=== PATIENT | male | born 1995 | race Caucasian/White ===

== ENCOUNTER → 2020-10-08 08:18 | Outpatient (BNVA) | payer SELFPAY | PROVIDERS: Referring Provider Nurse Practitioner Family; Visit Provider Orthopaedic Surgery | DX: M51.26 Other intervertebral disc displacement, lumbar region (principal); M48.061 Spinal stenosis, lumbar region without neurogenic claudication | CPT/HCPCS: 72072; 72110 ==

== ENCOUNTER 2020-10-08 10:53 | Outpatient (CLI) | payer SELFPAY ==
--- NOTE | 2020-10-08 11:00 | MR_ITS ---
WS: [id number] MRI LUMBAR SPINE NONCONTRAST HISTORY: M54.5 - Low back pain COMPARISON: None available. TECHNIQUE: Sagittal and axial multisequence imaging is submitted. Normal lumbar alignment with no compression fractures or marrow edema. Mild disc desiccation at L4-5 and L5-S1. No marrow edema or fracture. Conus terminates normally at L1. L1-L2: Normal. L2-L3: Mild annular disc bulging with facet arthritis. No significant stenosis. L3-L4: Mild annular disc bulging with a focal central to RIGHT paracentral disc protrusion contacting and displacing the thecal sac. Disc protrusion abuts the L4 nerve root in the lateral recess. Mild b ilateral facet joint arthritis and mild bilateral foraminal stenosis. RIGHT facet joint cyst measures 5 mm associated with the L3-4 synovium. Smaller cyst on the LEFT. L4-L5: Mild annular disc bulging and osteophytic ridging. Small central disc protrusion contacting th e ventral thecal sac with mild deformity. Mild bilateral foraminal narrowing. Slightly greater forami nal narrowing on the RIGHT. L5-S1: Mild annular disc bulging and osteophytic ridging. Central annular fissure. Mild facet joint a rthritis. Disc and facet arthritis contributing to moderate bilateral foraminal stenosis. Visualized retroperitoneum is negative. MR/MR lumbar spine wo con* [id number] IMPRESSION: 1. Central to RIGHT paracentral disc protrusion at L3-4 displacing the ventral thecal sac and abutting the L4 nerve root. 2. Moderate bilateral foraminal stenosis at L5-S1. 3. Mild bilateral foraminal stenosis at L4-5, greater on the RIGHT. 4. Mild foraminal stenosis and facet arthritis at L3-4.
== END 2020-10-08 10:54 | disposition home or self-care (01) ==
PROVIDERS: Visit Provider Orthopaedic Surgery
DX: M48.061 Spinal stenosis, lumbar region without neurogenic claudication (principal); M48.07 Spinal stenosis, lumbosacral region; M51.26 Other intervertebral disc displacement, lumbar region
CPT/HCPCS: 72148

== ENCOUNTER → 2020-11-18 10:30 | Outpatient (BNVA) | payer SELFPAY | PROVIDERS: Referring Provider Nurse Practitioner Family; Visit Provider Specialist | DX: M79.605 Pain in left leg (principal); Z20.822 Contact with and (suspected) exposure to COVID-19 | CPT/HCPCS: 73590; 73610; 87635 ==

== ENCOUNTER 2020-11-23 06:06 | Day surgery (SDC) | payer SELFPAY ==
[2020-11-23] VITALS (11 sets, daily range): BP systolic 119–169; BP diastolic 85–132; PULSE 85–104; RESP 16–26; TEMP 36.1–36.6; O2SAT 90–96; BMI 30.7
--- NOTE | 2020-11-23 | XR_ITS ---
WS: [id number] C-ARM RADIOGRAPHS LEFT TIBIA FIBULA.; 4 IMAGES HISTORY: Removal of hardware screws and fibular plate COMPARISON: 11/18/2020 Intraoperative imaging during removal of the mid fibular plate and screws. Additional removal of 2 sc rews in the distal tibia. XR/XR tibia fibula LT 2V 18000 IMPRESSION: Intraoperative removal of distal tibial screws and screw-plate fixation mid fib dwaine.
--- NOTE | 2020-11-23 06:36 | ANES.PREANE2 ---
Pre-Anesthetic Assessment Pre-Anesthetic Assessment: Height/Weight: Height 1.8 m Weight 99.79 kg Preop Diagnosis: Painful orthopedic hardware Proposed Procedure: Operation Date: 11/23/20 08:00 Proposed Procedures p hardware removal left leg fibular plate and screws, tibial distal 2 screws and tibial proximal 1 screw () M79.605(Left) - Jennifer Ann MD Familial anesthetic complications: NOne Was Beta Yousif taken within 24 hours: N/A Was Clonidine taken within 24 hours: N/A Last intake: Intake Last Liquid Date 11/22/20 Last Liquid Time 23:30 Last Solid Date 11/22/20 Last Solid Time 20:00 Social: Social History: Tobacco and No alcohol Comment: chews Exam: Pre-Anes Outpt Exam: alert, oriented x 3, clear to auscultation bilaterally and regular rate & rhythm Airway: Cervical ROM: WNL MP: 3 Dentition: Full Anesthetic Plan: ASA status: 1 Anesthesia: General Risk of > 500 ml blood loss (7ml/kg in children): No PFSH Anesthesia PFSH: Medical History S/P ORIF (open reduction internal fixation) fracture Family History Grandfather CAD (coronary artery disease) Social History Smoking and tobacco status: current every day smoker smokeless tobacco Smokeless tobacco details: chews Second hand smoke exposure: No Alcohol intake: current Alcohol intake frequency: few times a month Data Anesthesia Cardiac Studies: No Data to Display
[2020-11-23] MEDS: sodium chloride 0.9% 1,000 ML 30 ML IV (06:50)
[2020-11-23] MEDS: acetaminophen 1,000 MG/100 ML PIGGYBACK 400 MG IV (06:50)
[2020-11-23] MEDS: CELEcoxib 200 mg Capsule 400 MG PO (06:50)
--- NOTE | 2020-11-23 07:40 | W.PM.OPSUD ---
Surgery/Procedure H&P Update DATE OF PROCEDURE: November 23, 2020 DATE H&P PERFORMED: 11/18/20 H&P UPDATE INFORMATION: I have reviewed H&P completed within last 30 days, I have examined patient prior to procedure, No changes to prior documentation and H&P is in [facility] EMR on date indicated PREOP DIAGNOSIS: Painful orthopedic hardware PLANNED PROCEDURE: Operation Date: 11/23/20 08:00 Proposed Procedures p hardware removal left leg fibular plate and screws, tibial distal 2 screws and tibial proximal 1 screw () M79.605(Left) - Jennifer Ann MD Related Problem List Diagnoses (1) Painful orthopaedic hardware: (2) S/P ORIF (open reduction internal fixation) fracture:
--- NOTE | 2020-11-23 08:15 | SCC_ITS ---
Procedure Done: Multiple hardware removal sites left lower extremity single incision at the tibial tubercle for 1 screw, medial distal tibia incision for removal of 2 screws at the distal aspect of the tibia, and scar revision with plate removal midshaft fibula with a third incision. 21.9 seconds of fluoroscopic guidance, for a cumulative dose of 1.01 mGy, was provided to Dr.Jolly Borrero by the radiology department. C-arm images of the left tibia fibula were saved for the patient's permanent record. ABNER
[2020-11-23] MEDS: ceFAZolin 1,000 mg SDV 1000 MG IRRIGATION (10:01)
--- NOTE | 2020-11-23 10:44 | SUR.PHASEI ---
1041 PATIENT TO PACU FROM OR AT THIS TIME. RR EVEN AND UNLABORED. PWD. DRESSING IN PLACE WITH LUCI WRAP TO LEFT ANKLE. CDI.
--- NOTE | 2020-11-23 10:55 | P.PCN_ITS ---
PACU note PACU note: VSS, Good respiratory effort, report to FRONT END SOFTWARE ENGINEER Post-Anesthesia Exam: awake
--- NOTE | 2020-11-23 10:55 | PM.PACU ---
PACU note PACU note: VSS, Good respiratory effort, report to INSTALLATION AND REPAIR TECHNICIAN Post-Anesthesia Exam: awake
--- NOTE | 2020-11-23 10:57 | PM.OP ---
Operative Report Date of procedure: November 23, 2020 Pre-op Diagnosis: Painful orthopedic hardware left tibia Post-op diagnosis: same Post-op Findings: Very difficult screw removal of the distal 2 tibial screws Procedure Done: Multiple hardware removal sites left lower extremity single incision at the tibial tubercle for 1 screw, medial distal tibia incision for removal of 2 screws at the distal aspect of the tibia, and scar revision with plate removal midshaft fibula with a third incision. Specimens removed/disposition: Hardware removed, patient desires to have hardware Pathology: none sent Surgeon: Jennifer Ann Yard Rigger: [facility] operating room technicians Anesthesia: MAC (ASA 1) Estimated blood loss (mL): 10 Tourniquet time (min): 117 Tourniquet time: At 250 mmHg IV fluids (mL): 700 Urine output (mL): 0 Urine output: No Skelton Complications: None Findings: Retained hardware including a broken fibular plate with 7 screws are removed uneventfully. Proximal screw removal from intramedullary tibial nail. Distal screw removal x2 from intramedullary tibial nail with significant difficulty. Condition: stable Disposition: PACU (Then to same-day surgery and home) Brief History: This 25-year-old gentleman underwent open reduction internal fixation with a intramedullary meera elsewhere. This has been a few years ago. The patient now presents with complaints of pain in the fibula from a subsequent fibular plate which broke out following the fixation. He also complains of pain from the distal tibial screws particularly. He notes that he had another procedure to remove scar tissue from his knee as well following the surgical procedure. Procedure: Patient was seen in the preoperative holding area and leg was marked. Patient was brought to the operating theater and placed on the operating room table. After undergoing adequate general MAC anesthesia, ASA 1, the patient's left lower extremity was prepped and draped in usual fashion utilizing DuraPrep. The leg was draped free. Fluoroscopy was used throughout the surgical procedure. We did have a tourniquet high on the left lower extremity. This was elevated to 250 mmHg and total tourniquet time was 117 minutes. Tourniquet elevation followed exsanguination of the leg. A surgical pause was performed. At the time of the surgical pause we identified the site and side of surgery as well as the patient's identity and availability of equipment. We also confirmed appropriate administration of IV antibiotics. Following the above, an incision was made centering over the patient's proximal tibial screw. Fluoroscopy was used to identify and confirm position prior to using the patient's previous incision to remove the screw. The screw was removed uneventfully. Attention was then directed to the distal aspect of the tibia. Patient's previous medial incision was opened. Initially, we had the 2 separate incisions, but these were subsequently connected secondary to the difficulty of removing the screws. Aggressive attempt was made to remove the 2 screws. We then used a coring device over the medial aspect and over the screw heads. Once we did this, we were able to use a combination of the screwdriver with vice program director group work and a mallet to loosen the screw and subsequently remove it. We were able to remove each of the screws in this fashion. This was very difficult. We did confirm that the entire screw was removed both with examination of the screws and with fluoroscopic evaluation. The screw holes were copiously irrigated. The subcutaneous tissues were closed with 2-0 Monocryl in an interrupted fashion. The subcuticular wounds were closed with 3-0 Monocryl as well. Injection was then accomplished into the wounds as a local with bupivacaine. This was followed by Dermabond, Steri-Strips, and an OpSite. The final dressings were placed after removal of the fibular plate as well. Attention was then directed to the midshaft of the fibula. The patient's previous incision was utilized and was revised as it had widened with the healing process. Once again, we used fluoroscopy to confirm appropriate incision placement. We dissected through skin and soft tissues using a scalpel hemostasis was obtained using electrocautery. Soft tissues were then opened with scissors. We were able to lift the soft tissues off of the fibula. There was some bony growth over the top and this was removed as well. The 7 screws were removed uneventfully. There was indeed a fracture of the fibular plate as expected from the x-rays. The plate was removed. Screw holes were then debrided. The fibula was smooth. Copious irrigation was accomplished. The incision was closed with a combination of 0 Vicryl deep and 2-0 Monocryl in the subcutaneous tissues. The skin was then closed in a subcuticular fashion with 3-0 Monocryl. Once again, this was followed by Dermabond, Steri-Strips, and an OpSite.. Sterile dressing was further placed on the left lower extremity consisting sterile soft roll and an Dashawn wrap. The patient may be weightbearing as tolerated. The procedure was well tolerated without complication. Tourniquet time was 117 minutes at 250 mmHg. The patient will be discharged home to follow-up in my office as scheduled. Associated Problem List Diagnoses (1) Painful orthopaedic hardware: (2) S/P ORIF (open reduction internal fixation) fracture:
--- NOTE | 2020-11-23 11:15 | ANES.PROC ---
Anesthesia Procedures Procedure/Date: 11/23/20 Nerve Block ^: Nerve Block 1: Main Anesthesia: general anesthesia Time Out Performed: Yes Consent: requested by attending/covering physician, from patient, risks and benefits reviewed and patient agrees to proceed Nerve block location: popliteal (L) Anesthesia monitors applied: pulse oximetry, EKG, BP cuff and oxygen Nerve block position: semi sitting Anesthetic Used: ropivicaine 0.5% and with decadron (4 mg) Amount of anesthesia used (mL): 30 Ultrasound used to: recognize landmarks Nerve Stimulator Used?: No Interscalene/Femoral BLK: 4 stimuplex 21 g needle used for position and inplane approach, visualize local anesthetic spread and no vascular puncture identified Injection: neg aspiration of heme Patient Tolerated Procedure: well and no complications Complications: none Additional Comments: Patient requesting nerve block in PACU d/t to refractory pain. Patient educated on risks of PNB given pre-existing neuropathy
--- NOTE | 2020-11-23 11:15 | SUR.PHASEI ---
1100 DR. STEVENSON ASSISTED WITH NERVE BLOCK. PATIENT TOLERATED WELL.
[2020-11-23] MEDS: HYDROcodone-acetaminophen 5-325 mg Tablet 1 TAB PO (11:49)
== END 2020-11-23 11:58 | disposition home or self-care (01) ==
PROVIDERS: Visit Provider Specialist
PROC: (CPT 20680; principal; 2020-11-23 08:00)
DX: T84.84XA Pain due to internal orthopedic prosthetic devices, implants and grafts, initial encounter (principal); F17.220 Nicotine dependence, chewing tobacco, uncomplicated
CPT/HCPCS: 20680; 64450; 73590; 76000; 76942; 96365; J0690; J1100; J2405; J2704; J2795; J3010; J3490; J7030

== ENCOUNTER 2021-07-18 18:00 | Emergency (ER) | payer SELFPAY ==
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
[2021-07-18 18:41] VITALS: BP 137/95; PULSE 86; RESP 18; TEMP 36.8; O2SAT 99; BMI 27.1
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
--- NOTE | 2021-07-18 18:48 | PC.NURSE ---
FIXTURE DESIGNER in triage room
--- NOTE | 2021-07-18 21:31 | PC.NURSE ---
No answer at 2129
== END 2021-07-18 21:30 | disposition left against medical advice (07) ==
DX: Z53.21 Procedure and treatment not carried out due to patient leaving prior to being seen by health care provider (principal)
CPT/HCPCS: 70450; 70486; 72125; 72131